=== PATIENT | female | born 1995 | race African-American/Black ===

== ENCOUNTER 2023-02-21 00:40 | Emergency (ER) | payer OTHER, BC ==
[2023-02-21] MEDS ORDERED: HYDROcodone/Acetaminophen 10/325 mg Tablet ONE (01:08)
== END 2023-02-21 03:40 | disposition home or self-care (01) ==
LOC: ERS 00:40
DX: S00.83XA Contusion of other part of head, initial encounter (principal); V58.2XXA Person on outside of pick-up truck or van injured in noncollision transport accident in nontraffic accident, initial encounter
CPT/HCPCS: 70486